=== PATIENT | male | born 1995 | race Caucasian/White ===

== ENCOUNTER → 2018-10-02 | Outpatient (CLI) | payer OTHER ==
--- NOTE | 2018-10-02 10:17 | REP ---
MAXILLOFACIAL CT STUDY WITHOUT CONTRAST: HISTORY: Deviated septum. No comparison study. CT FINDINGS: Digital preliminary bladder blower views are unremarkable. There is moderate mucosal thickening affecting the maxillary sinuses bilaterally. Mild patchy mucosal changes are seen in water to right ethmoid air cells. Sphenoid sinuses are clear. The frontal sinus on the left is not develop. The right frontal sinus is small but clear. Mastoid aeration is normal and symmetric. No intraorbital lesion is seen. Deep facial soft tissues are unremarkable. The anterior cartilaginous portion of the nasal septum deviates to the left. The mid bony septum bows slightly to the left without septal beaking. The nasal turbinate soft tissues are unremarkable. Ostiomeatal complexes are widely patent bilaterally. There is no evidence of nasal polyp. There is slight deformity of the anterior nasal bone question old trauma. IMPRESSION: Leftward deviation of the cartilaginous anterior nasal septum more than the bony portion. Moderate mucosal changes in the maxillary sinuses bilaterally. I suspect old nasal bone fracture with slight deformity. Electronically Signed by Levar Tavarez MD 10/02/2018 10:44 A
== END ==
LOC: M RAD 08:59
PROVIDERS: ATTEND Otolaryngology
DX: J34.2 Deviated nasal septum (principal)

== ENCOUNTER 2018-11-23 08:05 | Day surgery (SDC) | payer OTHER ==
[~2018-11-23] VITALS: Ht 185.4 cm; Wt 84.9 kg
[2018-11-23] MEDS ORDERED: LIDOCAINE W/EPINEPHRINE 1% 20ML VIAL As Ordered ONE (09:17)
[2018-11-23] MEDS ORDERED: METHYLENE BLUE 0.5% (5MG/ML) 10 ML AMP (PROVAYBLUE)(Q9968 PER 1MG) As Ordered ONE (09:18)
[2018-11-23] MEDS ORDERED: OXYMETAZOLINE NASAL SPRAY (AFRIN) As Ordered ONE (09:18)
[2018-11-23] MEDS ORDERED: SODIUM CHLORIDE 0.9% NASAL GEL 15GM (AYR) As Ordered ONE (09:18)
[2018-11-23] MEDS ORDERED: LIDOCAINE 2% INJ 100 MG/5 ML SDV (FOR ANES.) As Ordered ONE (09:26)
[2018-11-23] MEDS ORDERED: ROCURONIUM BROMIDE 50 MG/5 ML VIAL As Ordered ONE (09:26)
[2018-11-23] MEDS ORDERED: PROPOFOL 200 MG/20 ML VIAL As Ordered ONE (09:26)
[2018-11-23] MEDS ORDERED: fentaNYL 250 MCG/5 ML INJECTION (J3010) As Ordered ONE (09:27)
[2018-11-23] MEDS ORDERED: MIDAZOLAM INJ 2 MG/2 ML VIAL (J2250) As Ordered ONE (09:27)
[2018-11-23] MEDS ORDERED: LR 1,000 ML IV ONE (09:45)
[2018-11-23] MEDS ORDERED: dexameTHASONE 4 MG/ML 1ML VIAL (J1100) As Ordered ONE (10:44)
[2018-11-23] MEDS ORDERED: KETOROLAC 60 MG/2 ML VIAL (J1885) As Ordered ONE (11:04)
[2018-11-23] MEDS ORDERED: ONDANSETRON 4MG/2ML VIAL (J2405) As Ordered ONE (11:36)
[2018-11-23] MEDS ORDERED: BACITRACIN OINT 30GM As Ordered ONE (11:48)
[2018-11-23] MEDS ORDERED: ONDANSETRON 4MG/2ML VIAL (J2405) IV PRN (12:30)
[2018-11-23] MEDS ORDERED: LR 1,000 ML IV SCH (12:30)
[2018-11-23] MEDS ORDERED: METOCLOPRAMIDE INJ 10MG/2ML VIAL (J2765) IV PRN (12:30)
[2018-11-23] MEDS ORDERED: fentaNYL 100 MCG/2 ML INJECTION (J3010) IV PRN (12:30)
[2018-11-23] MEDS ORDERED: PERCOCET 5MG/325MG TAB PO PRN (12:30)
[2018-11-23 13:00] VITALS: BP 143/78
--- NOTE | 2018-11-23 19:21 | RO ---
DATE OF PROCEDURE: 11/23/2018 PREOPERATIVE DIAGNOSES: Severe septal deviation and nasal obstruction, turbinate hypertrophy, mild sinusitis but improved and not wishing to have anything done about it right at this moment. POSTOPERATIVE DIAGNOSES: Severe septal deviation prior to surgery, behind part of the cartilaginous break, there was approximately a 4 mm septal perforation that was hidden behind the cartilage fracture, which was identified at time of nasal decongesting and injection. OPERATION PERFORMED: 1. Septoplasty. 2. Repair of septal perforation utilizing cartilage graft and mobilization of nasal septal mucosa, also bilateral inferior turbinoplasty as well as along with the septoplasty. SURGEON: Morteza Dhillon Jr, MD CHECKROOM CHIEF: ANESTHESIA: General via endotracheal tube. INDICATIONS FOR PROCEDURE: Significant nasal obstruction secondary to nasal fracture. PROCEDURE IN DETAIL: With the patient in the supine position after being intubated, prepped and draped in the usual fashion, nasal cavity was decongested with topical Afrin pledgets. At this point, behind the severe cartilaginous fracture, there was crust material that was identified. This was cleaned out and this revealed a well-healed 4 mm perforation that had been filled with crust, and once the crust had been removed, it became evident this is a chronic issue because the mucosal edges had completely gone through both sides of the nasal septum and was well-healed. This was completely cleaned out and injected with 1% lidocaine with 1:100,000 epinephrine as well. Mucoperichondrial, mucoperiosteal, bony cartilaginous junctions were also injected, a total of approximately 8 mL was injected. After this was done, the septal perforation was rimmed and cleaned, a left hemitransfixion incision ensued. This was carefully dissected to the perforation, which was approximately 1 cm to 1-1/2 cm posterior to the caudal portion of the nasal septum. At this point, dissection around the perforation was done to free the mucosa, part of the inferior part of the nasal mucosa was freed and mobilized superiorly. The bony cartilaginous junctions were posteriorly as well as inferiorly. Once this was done, the mucoperichondrium and mucoperiosteum was moved over with a Mcdonough elevator, and a bony spur posteriorly was removed with the Neil-Lul and Neil-Aly. Part of the bony maxillary crest inferiorly that was deviating to the right was freed on both sides with meticulous dissection, lots of scar tissue, and then the inferior portion of this crest that was going to the right was removed with the Sonny. Once this was done, part of the cartilage, approximately a centimeter to a centimeter and half was dissected and freed of the mucosa. There was another centimeter that was needed to open up the nasal cavity on the left-hand side where significant part of his issues were. Once this was done, cartilage was morselized and then placed over the previous rimmed septal perforation site. The mucosa was elevated from the inferior aspect to superiorly and then sutured in place transseptally with #3-0 chromic. The superior aspect was released inferiorly. This was only on the left-hand side. At this point, we have closed that sufficiently and then it has been re-mucosalized. Two septal columellar stitches were then placed to hold the septum in place. The inferior turbinates were outfractured utilizing the Reflex 45 Wand for the Coblator setting 4 and 2. Submucous release of energy was done with the Coblator at 4. At this point, the septum stayed straight without any mechanical movement or support. At this port, the bivalve splints were sutured transseptally with #5-0 nylon and a small piece of Nasopore was trimmed as well. The nasal cavities were irrigated with saline. There was no bleeding. At this point, control of the patient was turned over to the anesthesiologist. There were no problems. No complications. [facility]
== END 2018-11-23 13:15 | disposition home or self-care (01) ==
LOC: M SDC 08:05
PROVIDERS: ATTEND Otolaryngology
DX: J34.2 Deviated nasal septum (principal); J34.3 Hypertrophy of nasal turbinates; J34.89 Other specified disorders of nose and nasal sinuses
CPT/HCPCS: 30140; 30520; 30630; 88300; J1100; J1885; J2250; J2405; J3010; Q9968